=== PATIENT | male | born 1990 | race Caucasian/White ===

== ENCOUNTER 2022-11-03 00:11 | Emergency (ER) | payer MEDICAID ==
[~2022-11-03] VITALS: Ht 175.3 cm; Wt 86.0 kg
[2022-11-03 00:48] VITALS: BP 158/92
[2022-11-03] MEDS ORDERED: ONDANSETRON HCL 4MG/2ML INJ IV STA (00:57)
[2022-11-03] MEDS ORDERED: KETOROLAC 30MG/ML VIAL IV STA (00:57)
[2022-11-03] MEDS ORDERED: SODIUM CHLORIDE 0.9% 1,000 ML IV ONE (01:00)
[2022-11-03 01:31] LABS: HEMATOCRIT. 44.1 % (42.0-52.0); HEMOGLOBIN. 15.1 g/dL (14.0-18.0); MEAN CORPUSCULAR HEMOGLOBIN 28.5 pg (28.0-32.0); MEAN CORPUSCULAR VOLUME 83.2 fL (80.0-94.0); MEAN PLATELET VOLUME 9.9 fl (7.4-10.4); PLATELET 201 x1000/uL (130-400); RED CELL DISTRIBUTION WIDTH 14.5 % (11.6-14.6)
[2022-11-03 01:46] LABS: CHLORIDE 108 mEq/L (98-107)
[2022-11-03] MEDS ORDERED: KETOROLAC 30MG/ML VIAL IV NR (05:45)
[2022-11-03] MEDS ORDERED: ONDANSETRON HCL 4MG/2ML INJ IV NR (05:45)
[2022-11-03 05:50] LABS: PLATELET ESTIMATE NORMAL
[2022-11-03] MEDS ORDERED: ACET-2708 PO (06:12)
[2022-11-03] MEDS ORDERED: ONDA4TAB50 PO (06:12)
[2022-11-03 07:48] LABS: CLARITY URINE CLEAR (CLEAR); COLOR URINE YELLOW (YELLOW); KETONES URINE NEGATIVE (NEGATIVE); LEUKOCYTE ESTERASE URINE NEGATIVE (NEGATIVE); NITRITE URINE NEGATIVE (NEGATIVE); OCCULT BLOOD URINE NEGATIVE (NEGATIVE); PH URINE 5.5 (4.5-8.0); PROTEIN URINE NEGATIVE (NEGATIVE); UROBILINOGEN URINE 0.2 E.U./dL (0.2-1.0)
== END 2022-11-03 08:52 | disposition home or self-care (01) ==
LOC: ER 00:22
DX: K52.9 Noninfective gastroenteritis and colitis, unspecified (principal)
CPT/HCPCS: 36415; 74176; 80053; 81003; 83690; 85025; 96361; 96374; 96375; 99284; J1885; J2405; J7030